=== PATIENT | male | born 1975 | race Caucasian/White ===

== ENCOUNTER 2021-03-21 17:39 | Emergency (ER) | payer OTHER ==
[~2021-03-21] VITALS: Ht 172.7 cm; Wt 102.2 kg
[2021-03-21 18:05] VITALS: BP 133/88
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
[2021-03-21] MEDS ORDERED: BACITRACIN ZINC TOPICAL OINT PACKET. TP ONE (18:30)
[2021-03-21] MEDS ORDERED: DIPH,PERTUSS(ACELL),TET VAC/PF 0.5 ML SYRINGE. VAX IM ONE (18:30)
[2021-03-21] MEDS ORDERED: LIDOCAINE 2% 20 ML VIAL. IJ ONE (18:30)
[2021-03-21] MEDS ORDERED: HYDR-1179 PO (19:06)
[2021-03-21] MEDS ORDERED: CEPH750C9 PO (19:06)
[2021-03-21] MEDS ORDERED: cefTRIAXone IM 1 GM VIAL IM ONE (19:30)
--- NOTE | 2021-03-21 19:41 | RAD ---
Exam: Right hand 3 views INDICATION: Crush injury, fifth digit TECHNIQUE: Frontal, lateral and oblique views of the right hand Comparisons: None FINDINGS: Soft tissue swelling of the fifth digit. Bone mineralization is normal. No acute or healed fractures. Joint spaces are well-maintained. IMPRESSION: Soft tissue swelling at the fifth digit without underlying osseous abnormality identified. Electronically signed by: Lynda Phillips MD (03/21/2021 7:38 PM) [facility]
== END 2021-03-21 20:00 | disposition home or self-care (01) ==
LOC: ER 17:39
DX: S61.216A Laceration without foreign body of right little finger without damage to nail, initial encounter (principal); X58.XXXA Exposure to other specified factors, initial encounter; Y93.89 Activity, other specified; Y92.89 Other specified places as the place of occurrence of the external cause; Y99.8 Other external cause status
CPT/HCPCS: 12002; 73130; 90471; 90715; 96372; 99284; J0696